=== PATIENT | female | born 2000 ===

== ENCOUNTER 2024-05-22 13:31 | Outpatient (CLI) | payer OTHER | END 2024-05-22 13:34 | disposition home or self-care (01) | LOC: PRENATAL 13:31 | PROVIDERS: ATTEND Obstetrics & Gynecology Maternal & Fetal Medicine | DX: O36.80X0 Pregnancy with inconclusive fetal viability, not applicable or unspecified (principal); Z36.82 Encounter for antenatal screening for nuchal translucency; Z36.9 Encounter for antenatal screening, unspecified; Z14.8 Genetic carrier of other disease; Z3A.11 11 weeks gestation of pregnancy ==

== ENCOUNTER → 2024-07-18 08:13 | Outpatient (CLI) | payer OTHER | END | disposition home or self-care (01) | LOC: PRENATAL 08:13 | PROVIDERS: ATTEND Obstetrics & Gynecology Maternal & Fetal Medicine | DX: O44.00 Complete placenta previa NOS or without hemorrhage, unspecified trimester (principal); Z3A.20 20 weeks gestation of pregnancy ==

== ENCOUNTER → 2024-10-10 08:44 | Outpatient (CLI) | payer OTHER | END | disposition home or self-care (01) | LOC: PRENATAL 08:44 | PROVIDERS: ATTEND Obstetrics & Gynecology Maternal & Fetal Medicine | DX: O26.849 Uterine size-date discrepancy, unspecified trimester (principal); O36.8199 Decreased fetal movements, unspecified trimester, other fetus; Z3A.32 32 weeks gestation of pregnancy ==

== ENCOUNTER 2024-11-24 10:13 | Inpatient (IN) | payer OTHER ==
[~2024-11-24] VITALS: Ht 157.5 cm; Wt 90.7 kg
[2024-11-24] VITALS (8 sets, daily range): BP systolic 83–131; BP diastolic 55–76
[2024-11-24] MEDS ORDERED: AMPICILLIN SODIUM 2,000 MG VIAL ONE (10:24)
[2024-11-24] MEDS ORDERED: AMPICILLIN SODIUM 2,000 MG VIAL IV ONE (10:45)
[2024-11-24] MEDS ORDERED: RINGERS SOLUTION,LACTATED 1,000 ML IV SCH (10:45)
[2024-11-24] MEDS ORDERED: FOLIC ACID20 MG PO (11:06)
[2024-11-24] MEDS ORDERED: PRENATABS RX T1 EACH PO (11:06)
[2024-11-24 11:07] LABS: URINE APPEARANCE Clear; URINE BILIRRUBIN Negative (NEGATIVE); URINE BLOOD Negative; URINE COLOR Yellow; URINE GLUCOSE Negative (NEGATIVE); URINE KETONE Negative (NEGATIVE); URINE LEUKOCYTE Negative; URINE NITRATE Negative; URINE PROTEIN Negative (NEGATIVE)
[2024-11-24 11:11] LABS: HEMATOCRIT 35.9 % (36.0-45.00); MEAN CELL VOLUME 77.7 fL (80.00-100.00); MEAN CORPUSCULAR HEMOGLOBIN 26.1 pg (27.00-32.0); MEAN CORPUSCULAR HGB CONC 33.5 g/dl (32.0-36.0); PLATELET COUNT 240 K/uL (150-450); RED BLOOD COUNT 4.62 M/uL (4.00-6.00); RED CELL DISTRIBUTION WIDTH 15.6 % (11.5-14.5); URINE BACTERIA 914.1 uL (0.0-1933); URINE EPITHELIAL CELLS 16.9 uL (0.0-38.8); URINE RBC 2.3 uL (0.0-20.8); URINE WBC 17.7 uL (0.0-23.2)
[2024-11-24] MEDS ORDERED: OXYTOCIN 20 UNITS/1000ML RL PIGGYBAG IV ONE (11:28)
[2024-11-24] MEDS ORDERED: CHLORHEXIDINE GLUCONATE 120 ML BOTTLE TOP ONE ×2 (11:28→16:30)
[2024-11-24] MEDS ORDERED: ERYTHROMYCIN BASE OPHT 1GM EACH TUBE OP ONE ×2 (11:28→16:30)
[2024-11-24] MEDS ORDERED: LIDOCAINE HCL 1% 10ML VIAL ONE (11:29)
[2024-11-24 11:53] LABS: INR < 0.93; PARTIAL THROMBOPLASTIN TIME 25.9 SECONDS (22.0-34.0); PROTHROMBIN TIME 9.8 SECONDS (9.0-11.5)
[2024-11-24] MEDS ORDERED: OXYTOCIN 20 UNITS/500ML RL PIGGYBAG IV ONE (12:52)
[2024-11-24] MEDS ORDERED: AMPICILLIN SODIUM 1,000 MG VIAL IV SCH (13:00)
[2024-11-24] MEDS ORDERED: OXYTOCIN 500 ML IV SCH ×2 (13:15)
[2024-11-24] MEDS ORDERED: MORPHINE SULFATE 4 MG/ML CARTRIDGE IV ONE (13:15)
[2024-11-24] MEDS ORDERED: MORPHINE SULFATE 4 MG/ML VIAL IV ONE (13:15)
[2024-11-24] MEDS ORDERED: OXYTOCIN 1,000 ML IV SCH (16:30)
[2024-11-24] MEDS ORDERED: IBUprofen 400 MG TABLET PO PRN (17:00)
[2024-11-25 01:00] VITALS: BP 124/83
[2024-11-25 07:08] LABS: HEMATOCRIT 32.9 % (36.0-45.00); HEMOGLOBIN 11.1 g/dL (12.0-15.00); MEAN CELL VOLUME 76.5 fL (80.00-100.00); MEAN CORPUSCULAR HEMOGLOBIN 25.7 pg (27.00-32.0); MEAN CORPUSCULAR HGB CONC 33.6 g/dl (32.0-36.0); PLATELET COUNT 217 K/uL (150-450); RED CELL DISTRIBUTION WIDTH 15.5 % (11.5-14.5)
[2024-11-25 08:41] VITALS: BP 116/74; O2SAT 99
[2024-11-25] MEDS ORDERED: PNV,CALCIUM 72/IRON/FOLIC ACID 1 TAB TABLET PO SCH (09:00)
[2024-11-25 13:41] VITALS: BP 113/75
[2024-11-25 16:00] VITALS: BP 120/80
[2024-11-26 00:21] VITALS: BP 119/80
[2024-11-26 08:27] VITALS: BP 132/79; O2SAT 100
== END 2024-11-26 10:22 | disposition home or self-care (01) | DRG 807 ==
LOC: OB/GYN 10:13 → LDR 10:13 → OB/GYN 16:49
PROVIDERS: ADMIT Obstetrics & Gynecology; ATTEND Obstetrics & Gynecology
PROC: 10E0XZZ Delivery of Products of Conception, External Approach (ICD-10-PCS; principal; 2024-11-24)
PROC: 4A1HXCZ Monitoring of Products of Conception, Cardiac Rate, External Approach (ICD-10-PCS; 2024-11-24)
DX: O80 Encounter for full-term uncomplicated delivery (principal); Z37.0 Single live birth; Z3A.38 38 weeks gestation of pregnancy